=== PATIENT | male | born 1950 | race Caucasian/White ===

== ENCOUNTER → 2017-05-26 | Outpatient (CLI) | payer MEDICARE, OTHER ==
[~2017-05-26] MED LIST: GLIP10TA13 PO; LEVO500T69 PO; LISI1TAB10 PO; METF-380 PO; METH4TAB PO; NIAC-4; SIMV20TA3 PO
--- NOTE | 2017-05-26 14:23 | Diagnostic Imaging Report ---
Scrotal ultrasound. INDICATION: Hydrocele. Right scrotal pain. FINDINGS: The right testicle is 5 x 2.7 x 3.7 cm in size. The left testicle is 2.6 x 1.7 x 3 cm. The testicular parenchyma is fairly homogeneous with no focal mass seen. The left testicle overall is smaller in size compared to the right side. This could be congenital or related to the prior insult. There are arterial and venous waveforms noted. There are bilateral hydroceles small on the right side and minimal on the left. IMPRESSION: 1. Small hydrocele on the right side and minimal hydrocele on the left. 2. The left testicle is overall smaller in size compared to the right testicle with normal color flow seen. This could be congenital or secondary to a prior insult. Correlate clinically. Dictated by: Dictated on workstation # [id number]
== END ==
LOC: RAD 08:27
DX: N43.2 Other hydrocele (principal)
CPT/HCPCS: 76870

== ENCOUNTER 2017-06-12 05:40 | Outpatient (CLI) | payer MEDICARE, OTHER ==
[~2017-06-12] VITALS: Ht 167.6 cm; Wt 113.4 kg
[~2017-06-12 05:40] MED LIST changes: -NIAC-4; +NIAC-4 PO
[2017-06-12] MEDS ORDERED: SIMV40TA4 PO (12:31)
[2017-06-12] MEDS ORDERED: GLIP-197 PO (12:31)
[2017-06-12] MEDS ORDERED: METF1000 PO (12:31)
[2017-06-12] MEDS ORDERED: TAMS0.4C2 PO (12:32)
[2017-06-12] MEDS ORDERED: LISI1TAB10 PO (12:32)
[2017-06-12] MEDS ORDERED: ASPI-586 PO (12:32)
[2017-06-12] MEDS ORDERED: EMPA1TAB PO (12:32)
[2017-06-12] MEDS ORDERED: OMEG-154 PO (12:32)
[2017-06-12] MEDS ORDERED: ALBI30PE SQ (12:32)
== END 2017-06-12 12:34 ==
LOC: PREOP 05:40
PROVIDERS: ATTEND Surgery
DX: Z01.818 Encounter for other preprocedural examination (principal); Z86.010 Personal history of colon polyps

== ENCOUNTER 2017-06-14 09:11 | Day surgery (SDC) | payer MEDICARE, OTHER ==
[~2017-06-14] VITALS: Ht 167.6 cm; Wt 113.4 kg
[~2017-06-14 09:11] MED LIST changes: +ALBI30PE SQ; +ASPI-586 PO; +EMPA1TAB PO; +GLIP-197 PO; +METF1000 PO; +OMEG-154 PO; +SIMV40TA4 PO; +TAMS0.4C2 PO
[2017-06-14] MEDS ORDERED: NS IV 500 ML 500 ML IV SCH (09:30)
[2017-06-14] MEDS ORDERED: LIDOCAINE JELLY 2% (XYLOCAINE) 5 ML TUBE MM PRN (09:30)
[2017-06-14 10:00] VITALS: BP 131/82
[2017-06-14] MEDS: fentaNYL INJECTION 100 MCG/2 ML AMP IVP PRN ×2 (10:13→10:15)
[2017-06-14] MEDS: MIDAZOLAM 2 MG/2 ML (VERSED) VIAL IVP PRN ×4 (10:14→10:48)
--- NOTE | 2017-06-14 10:22 | Conscious Sedation/ASA ---
Conscious Sedation Pre-Proced Time Reviewed: 09:30 ASA Class: 2 Airway Mallampati Classification: (pilot point appropriate class) I. II. III, IV Lungs Heart ASA score ASA 1: a normal healthy patient ASA 2: a patient with a mild systemic disease (mid diabetes, controlled hypertension, obesity ASA 3: a patient with a severe systemic disease that limits activity (angina , COPD, prior Myocardial infarction) ASA 4: a patient with an incapacitating disease that is a constant threat to life (CHF, renal failure) ASA 5: a moribund patient not expected to survive 24 hrs. (ruptured aneurysm) ASA 6: a declared brain patient whose organs are being harvested. For emergent operations, add the letter E after the classification Grade 3 Sedation Plan: Analgesia, Amnesia, Plan communicated to team members, Discussed options with patient/fam, Discussed risks with patient/fam Note The patient is an appropriate candidate to undergo the planned procedure, sedation, and anesthesia. The patient immediately re-assessed prior to indication. JOSE A PALUMBO MD Jun 14, 2017 10:22 am
--- NOTE | 2017-06-14 10:23 | Progress Note-Pre Operative ---
Pre-Operative Progress Note H&P Reviewed The H&P was reviewed, patient examined and no changes noted. Date Seen by Provider: Jun 14, 2017 Time Seen by Provider: : Date H&P Reviewed: Jun 14, 2017 Time H&P Reviewed: :30 Pre-Operative Diagnosis: hx polyps JOSE A PALUMBO MD Jun 14, 2017 10:23 am
[2017-06-14] MEDS ORDERED: ONDANSETRON 4 MG/2 ML (SDV) Z0FRAN IV PRN (10:30)
[2017-06-14] MEDS ORDERED: morphine INJ 10 MG/ML 1ML (SYR OR VIAL) IV PRN (10:30)
[2017-06-14] MEDS ORDERED: ACETAMINOPHEN 325 MG TABLET/CAPLET (TYLENOL) PO PRN (10:30)
[2017-06-14] MEDS ORDERED: HYDROcodone/APAP 5 MG/325 MG (LORTAB) TAB PO PRN (10:30)
--- NOTE | 2017-06-14 11:05 | Progress Note-Post Operative ---
Post-Operative Progess Note Surgeon (s)/Mold Presser (s) Surgeon JOSE A PALUMBO MD Mold Presser: none Pre-Operative Diagnosis hx polyps Post-Operative Diagnosis normal rectum and colon. Procedure & Operative Findings Date of Procedure 06/14/17 Procedure Performed/Findings Colonoscopy. Anesthesia Type CS Estimated Blood Loss Estimated blood loss (mL): minimal Specimens/Packing Specimens Removed none JOSE A PALUMBO MD Jun 14, 2017 11:04 am
--- NOTE | 2017-06-14 11:07 | Discharge Inst-Surgical ---
D/C Lap Instructions-[facility] Follow Up 10 years Activity as tolerated High Fiber Diet 25g or more per day Avoid Alcohol, Caffeine, Spicy [place] and Acid foods. Drink 64 fluid oz or more of fluids per day. Symptoms to Report: Fever over 101 degree F, Nausea/Vomiting If any problems/questions: Contact your physician or go to Emergency Room JOSE A PALUMBO MD Jun 14, 2017 11:07 am
[2017-06-14 11:20] VITALS: BP 117/73
[2017-06-14 11:45] VITALS: BP 125/75
[2017-06-14 11:50] VITALS: BP 125/75
--- NOTE | 2017-06-15 09:27 | OPERATIVE REPORT ---
DATE OF SERVICE: 06/14/2017 ATTENDING PRIMARY CARE PHYSICIAN: Dr. Edmond Magallanes. PREOPERATIVE DIAGNOSIS: History of colon polyp. POSTOPERATIVE DIAGNOSIS: Normal colon and rectum. PROCEDURE: Colonoscopy. SURGEON: Dr. Palubmo. ANESTHESIA: Conscious sedation. ESTIMATED BLOOD LOSS: Minimal. FINDINGS: No significant hemorrhoids were identified. Prostate gland was palpable and appeared normal. Remainder of the rectum and colon were normal. DISPOSITION: The patient tolerated the procedure well. INDICATIONS: The patient is a 67-year-old male in need of a followup colonoscopy. He reports that his last colonoscopy was approximately 5 years. At that time, a polyp was identified, biopsied and found to be benign. He reports for the most part, he is doing well and does not report any major issues with diarrhea nor constipation as well as no red blood per rectum nor any dark tarry stools. He also does not have a family history of colon cancer. DESCRIPTION OF PROCEDURE: The patient was brought to the endoscopy suite, laid in the left lateral decubitus position. After adequate IV pain and sedating medications and conscious sedation anesthesia, a digital rectal examination was performed. No significant hemorrhoids were identified. Normal sphincter tone was felt and there were no palpable masses. Prostate gland was palpable and appeared normal. The endoscope was then intubated to the anus and rectum and gently insufflated. The endoscope was then advanced through the valves of Vitale of the rectum with no polyps or any neoplasms identified. The endoscope was then advanced to the sigmoid colon where no diverticulosis identified. The endoscope was then advanced to the remainder of the descending, transverse and ascending colon to the cecum. These segments were normal. There were no polyps or any neoplasms identified throughout the colon or rectum. The endoscope was then slowly withdrawn while taking a second look and suctioning of residual air with no additional findings. The patient tolerated the procedure well. We will have him continue with medical management with a high fiber diet with at least 30 grams of fiber per day as well as at least 64 fluid ounces of water daily to promote soft stools on a daily basis. He does not need another colonoscopy for another 10 years; however, sooner if any problems arise. Job ID: [id number] DocumentID: [id number] Dictated Date: 06/14/2017 11:05:22 Agricultural Engineering Technologist Date: 06/14/2017 23:32:46 Dictated By: JOSE A PALUMBO MD
== END 2017-06-14 11:50 | disposition home or self-care (01) ==
LOC: ENDO 09:11
PROVIDERS: ATTEND Surgery
DX: Z86.010 Personal history of colon polyps (principal); E11.9 Type 2 diabetes mellitus without complications; I10 Essential (primary) hypertension; E78.00 Pure hypercholesterolemia, unspecified; N40.0 Benign prostatic hyperplasia without lower urinary tract symptoms; Z79.899 Other long term (current) drug therapy; F17.290 Nicotine dependence, other tobacco product, uncomplicated

== ENCOUNTER 2022-06-08 06:18 | Outpatient (CLI) | payer MEDICARE, OTHER ==
[~2022-06-08] VITALS: Ht 170.2 cm; Wt 103.9 kg
[~2022-06-08 06:18] MED LIST changes: -ALBI30PE SQ; +ALBI30PE3 SQ; -GLIP-197 PO; +GLIP10TA24 PO; +LISI1TAB48 PO; +METF-399 PO; -METF1000 PO; +SIMV40TA25 PO; -SIMV40TA4 PO
[2022-06-08] MEDS ORDERED: TMSL.4C PO (15:36)
[2022-06-08] MEDS ORDERED: ASPI-999 PO (15:36)
[2022-06-08] MEDS ORDERED: DULA1.5P2 SQ (15:36)
[2022-06-08] MEDS ORDERED: BRIM5DRO OD (15:36)
== END 2022-06-08 16:08 | disposition home or self-care (01) ==
LOC: PREOP 06:18
PROVIDERS: ATTEND Surgery
DX: Z01.818 Encounter for other preprocedural examination (principal)

== ENCOUNTER 2022-06-21 07:20 | Day surgery (SDC) | payer MEDICARE, OTHER ==
[~2022-06-21] VITALS: Ht 170.2 cm; Wt 103.9 kg
[~2022-06-21 07:20] MED LIST changes: +ASPI-999 PO; +BRIM5DRO OD; +DULA1.5P2 SQ; +TMSL.4C PO
[2022-06-21] MEDS ORDERED: LACTATED RINGERS 1,000 ML IV STA (07:29)
[2022-06-21 07:40] VITALS: BP 133/83
== END 2022-06-21 08:30 | disposition home or self-care (01) ==
LOC: ENDO 07:20
PROVIDERS: ATTEND Surgery
DX: Z12.11 Encounter for screening for malignant neoplasm of colon (principal); Z53.9 Procedure and treatment not carried out, unspecified reason; Z80.0 Family history of malignant neoplasm of digestive organs; Z94.7 Corneal transplant status; Z86.010 Personal history of colon polyps; F17.290 Nicotine dependence, other tobacco product, uncomplicated; E66.9 Obesity, unspecified; Z68.35 Body mass index [BMI] 35.0-35.9, adult

== ENCOUNTER 2022-07-18 05:37 | Outpatient (CLI) | payer MEDICARE, OTHER ==
[~2022-07-18] VITALS: Ht 170.2 cm; Wt 99.8 kg
== END 2022-07-18 13:52 ==
LOC: PREOP 05:37
PROVIDERS: ATTEND Surgery
DX: Z01.818 Encounter for other preprocedural examination (principal); Z12.11 Encounter for screening for malignant neoplasm of colon

== ENCOUNTER 2022-07-27 12:06 | Day surgery (SDC) | payer MEDICARE, OTHER ==
[~2022-07-27] VITALS: Ht 170 cm; Wt 99.8 kg
[2022-07-27] MEDS ORDERED: LIDOCAINE JELLY 2% 6 ML SYRINGE MM PRN (12:15)
[2022-07-27] MEDS ORDERED: LACTATED RINGERS 1,000 ML IV STA (12:18)
--- NOTE | 2022-07-27 12:18 | Progress Note-Pre Operative ---
Pre-Operative Progress Note Date of Available H&P: Jul 27, 2022 Date H&P Reviewed: Jul 27, 2022 Time H&P Reviewed: 12:00 History & Physical: No changes noted Pre-Operative Diagnosis: screening, FH colon ca JOSE A PALUMBO MD Jul 27, 2022 12:18
--- NOTE | 2022-07-27 12:19 | Discharge Inst-Surgical ---
D/C Lap Instructions-[facility] Follow Up Activity as tolerated High Fiber Diet 25g or more per day Avoid Alcohol, Caffeine, Spicy [place] and Acid foods. Drink 64 fluid oz or more of fluids per day. Symptoms to Report: Fever over 101 degree F, Nausea/Vomiting If any problems/questions: Contact your physician or go to Emergency Room JOSE A PALUMBO MD Jul 27, 2022 12:19
[2022-07-27] MEDS ORDERED: LACTATED RINGERS 1,000 ML IV ONE (12:22)
[2022-07-27 12:30] VITALS: BP 141/82
[2022-07-27] MEDS ORDERED: ONDANSETRON 4 MG (ZOFRAN) ORAL DISSOLVE TAB PO PRN (12:30)
[2022-07-27] MEDS ORDERED: ONDANSETRON 4 MG/2 ML (SDV) Z0FRAN IVP PRN (12:30)
[2022-07-27] MEDS ORDERED: PROPOFOL INJECTION 50 ML IV ONE (13:17)
[2022-07-27 13:50] VITALS: BP 116/69
[2022-07-27 13:55] VITALS: BP 116/69
[2022-07-27 14:18] VITALS: BP 132/79
--- NOTE | 2022-07-27 14:42 | Anesthesia-General Post-Op ---
MAC Patient Condition Mental Status/LOC: Same as Preop Cardiovascular: Satisfactory Nausea/Vomiting: Absent Respiratory: Satisfactory Pain: Controlled Complications: Absent Post Op Complications Complications None Follow Up Care/Instructions Patient Instructions None needed. Anesthesiology Discharge Order Discharge Order Patient is doing well, no complaints, stable vital signs, no apparent adverse anesthesia problems. No complications reported per nursing. ABENA AREVALO CRNA Jul 27, 2022 14:42
--- NOTE | 2022-07-27 15:31 | Progress Note-Post Operative ---
Post-Operative Progess Note Surgeon (s)/Medical Pathologist (s) Surgeon JOSE A PALUMBO MD Medical Pathologist: none Pre-Operative Diagnosis screening, FH colon ca Post-Operative Diagnosis mild chronic stage 2 ext and int hemorrhoids. Procedure & Operative Findings Date of Procedure 07/27/22 Procedure Performed/Findings colonoscopy Anesthesia Type mac Estimated Blood Loss Estimated blood loss (mL): minimal Specimens/Packing Specimens Removed none JOSE A PALUMBO MD Jul 27, 2022 15:31
--- NOTE | 2022-07-28 00:35 | OPERATIVE REPORT ---
DATE OF SERVICE: 07/27/2022 ATTENDING PRIMARY CARE PHYSICIAN: . PREOPERATIVE DIAGNOSIS: Screening colonoscopy, family history of colon cancer. 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 PROCEDURE: Colonoscopy. SURGEON: Jose A Palumbo MD ANESTHESIA: Monitored anesthesia care. ESTIMATED BLOOD LOSS: Minimal. FINDINGS: Chronic stage II external and internal hemorrhoids. DISPOSITION: The patient tolerated the procedure well. INDICATIONS: The patient is a 72-year-old male known to us. We had done a colonoscopy before in the past. His last one was 05/2017 and this was pretty much normal. He states that he is otherwise doing well. He does not report any issues with diarrhea, nor constipation as well as no red blood per rectum, nor any dark tarry stools. He does have a family history of colon cancer with his sister being diagnosed with the disease at around age 82. DESCRIPTION OF PROCEDURE: The patient was brought to the endoscopy suite and laid in the left lateral decubitus position. After adequate IV pain and sedative medications and monitored anesthesia care, a digital rectal examination was performed. Mild chronic stage II external and internal hemorrhoids were identified, which were not actively edematous nor inflamed and no bleeding. Normal sphincter tone was felt and there were no palpable masses. Prostate gland was palpable and appeared normal. The endoscope was then intubated into the anus, rectum and gently insufflated. The endoscope was then advanced to the valves of Vitale of the rectum with no polyps or neoplasms identified. We then proceeded through the sigmoid colon where no diverticulosis was identified. The endoscope was then advanced through the remainder of the descending, transverse and ascending colon to the cecum, which were normal. The endoscope was then slowly withdrawn while taking a second look and suctioning of residual air with no additional findings. The patient tolerated the procedure well. We will recommend a high fiber diet with at least 30 grams of fiber daily as well as significant amounts of water to promote soft consistency stools on a daily basis. Due to his first-degree family history of colon cancer, we will recommend a followup colonoscopy in approximately 5 years. Job ID: [id number] DocumentID: [id number] Dictated Date: 07/27/2022 13:53:19 Retail Advertising Account Executive Date: 07/28/2022 00:32:00 Dictated By: JOSE A PALUMBO MD
== END 2022-07-27 14:21 | disposition home or self-care (01) ==
LOC: ENDO 12:06
PROVIDERS: ATTEND Surgery
DX: Z12.11 Encounter for screening for malignant neoplasm of colon (principal); Z80.0 Family history of malignant neoplasm of digestive organs; K64.1 Second degree hemorrhoids; K64.4 Residual hemorrhoidal skin tags; E11.9 Type 2 diabetes mellitus without complications; E66.9 Obesity, unspecified; F17.290 Nicotine dependence, other tobacco product, uncomplicated; Z68.34 Body mass index [BMI] 34.0-34.9, adult; Z79.84 Long term (current) use of oral hypoglycemic drugs; Z79.85 Long-term (current) use of injectable non-insulin antidiabetic drugs